=== PATIENT | female | born 1990 | race Caucasian/White ===

== ENCOUNTER 2025-03-07 22:48 | Emergency (ER) | payer OTHER, SELFPAY ==
[2025-03-07 22:50] VITALS: BP 118/80
[2025-03-07 23:41] VITALS: BMI 20.3
[2025-03-07 23:56] LABS: Urine Character Clear (Clear)
[2025-03-08 00:36] LABS: Urine Red Blood Cell 0-2 /HPF (0-2); Urine White Cell 0-2 /HPF (0-5)
--- NOTE | 2025-03-08 00:44 | ED.GENMED ---
History of Present Illness
General
Chief Complaint: Musculo-Skeletal Complaint
Source: patient and records
Exam Limitations: none
Time Seen by Provider: 03/08/25 00:24
Nursing documentation reviewed up to this point in time: agreed with except (Pain is in the right low back, not in the left)
History of Present Illness
History of Present Illness:
34-year-old female presents to the ER for back pain. Patient reports onset of symptoms this evening and they have been constant since that time. She says that she was leaning over the sink when she felt pain in the left low back. She took a dose
of ibuprofen and symptoms have improved but not completely resolved. Pain is in the right low back radiates towards the buttock. Denies significant radicular symptoms. Denies weakness or numbness in the legs. Denies anesthesia in the groin.
Denies any incontinence of bowel or bladder. She has had similar symptoms from myofascial strain in the past. She denies any specific injury but states that she recently had an issue with her left leg and thinks she may have adjusted her gait.
Past History
Past History
ED Past Medical History: Psychiatric (admits she has had anxiety issues in the past and has been on PRN Ativan 3 yrs ago and admits this may be part of the issue and has appt with PCP Maria L Ring NP in 3 days.) and Other (Ulcerative Colitis);
Negative Asthma, HTN, Hypercholesterolemia or NIDDM
ED Past Surgical History: Tonsilectomy
Social History
Tobacco: Non-smoker
Alcohol: Occasional
Personal:
Living: with family
Employment: Employed (Sales)
Review of Systems
Review of Systems
All Other Systems: ROS reviewed and negative except as documented in HPI and ROS
Constitutional: Denies fever
: Denies incontinence
Musculoskeletal: Reports back pain
Neurological: Denies weakness or numbness
Phy Exam
Physical Exam
Physical Exam:
General: Awake, alert, oriented x3; no acute distress
Head: Normocephalic, atraumatic
Eyes: Conjunctiva normal
Throat: Airway intact, handling secretions
Neck: Trachea midline, supple without meningismus
Lungs: Breathing comfortably without distress
Heart: Regular rate
Back: No midline thoracic or lumbar tenderness, tenderness in the paraspinal musculature on the right in the lumbosacral region
Neuro: Cranial nerves grossly intact, speech fluid, motor and sensory intact in the legs, ambulatory with a normal gait
Skin: No rash in the area of concern
Extremities: No edema in extremities, equal pulses in all extremities
Scores
Heart Failure Risk
Heart Failure Risk Score: Not Applicable
Heart Score for Chest Pain Patients
STEMI patient?: Not applicable
Withdrawal Assessment of Alcohol
Withdrawal Assessment Completed?: Not applicable
Course
Orders/Labs/Results
Orders:
Orders
03/07/25 23:46
Urinalysis Reflex To Culture Urgent
Date Specimen was Collected: 03/07/25
Time Specimen was Collected: 23:40
Urine Microscopic Reflex Cult Urgent
03/08/25 00:46
Cyclobenzaprine HCl [Flexeril] 10 mg PO NOW STA
Ketorolac [Toradol] 15 mg IM NOW STA
Abnormal Lab Results
03/07/25
23:46
Urine Albumin (Reflex) 1+ A
(Neg - Trace)
Vital Signs
Initial and Last Documented VS:
Initial Vital Signs
Temp Pulse Resp BP Pulse Ox
36.4 C 104 20 118/80 99
03/07/25 22:50 03/07/25 22:50 03/07/25 22:50 03/07/25 22:50 03/07/25 22:50
Last Documented Vital Signs
Temp Pulse Resp BP Pulse Ox
36.4 C 104 20 118/80 99
03/07/25 22:50 03/07/25 22:50 03/07/25 22:50 03/07/25 22:50 03/08/25 00:46
MDM/Problems Addressed
Differential Diagnosis Includes:
Low back strain, sciatica, UTI less likely
MDM/Problems Addressed:
34-year-old female presents with low back pain. Vitals and exam as above. Symptoms seem consistent with muscular pain. She had a urinalysis in triage which is essentially bland. Plan to treat symptomatically, stable for discharge. No indication
for emergent imaging.
*Pulse Oximetry
SaO2: 99
Oxygen Mode of Delivery: Room air
Patient hypoxic: no (99%)
*Critical Care Note
Total Time (30-74mins, 75-104mins- exclusive of procedures): Not Applicable
Data Reviewed
Source: patient
Further Testing Considered But Not Given:
Considered x-ray of the back
ED Attending Note
-
Portions of this chart may have been created with voice recognition software.� Occasional wrong word or��sound alike� substitutions may have occurred due to the inherent limitations of voice recognition software.
Discharge Plan
Departure
Patient Disposition: Home (Routine Discharge)
Date of Disposition: 03/08/25
Time of Disposition: 00:51
Patient with high blood pressure during this ER visit?: No
Discharge Problem:
Low back pain
Instructions: Back Extension Exercises, Back Flexion Strengthening Exercises
Prescriptions:
New
cyclobenzaprine 10 mg tablet
10 mg PO TIDPRN PRN (Reason: muscle spasm) Qty: 10 0RF
No Action
fluoxetine [Prozac] 40 mg Capsule
40 mg PO DAILY
Trizepitide
1 dose SC WEEKLY
melatonin 10 mg Tablet
10 mg PO HS PRN (Reason: insomnia)
Referrals:
Rosey Gibson DO [Family Provider, Family Practice] - Call in 1-3 days for appt
Activity Restrictions/Additional Instructions:
Thank you for visiting the Emergency Department at [facility].
1. Please schedule a follow up appointment as directed. Call first thing tomorrow morning to make an appointment.
2. If indicated, please take your medications as instructed and indicated on discharge paperwork.
3. If any of your symptoms do not improve, or persist, or become more severe within 6-12 hours, please return to the emergency department for further care.
4. Please return to the emergency department if you develop a headache, neck pain/stiffness, fever greater than 100.4F, chest pain, shortness of breath, persistent nausea, vomiting, slurred speech, difficulty walking, numbness/tingling, weakness,
signs of infection or any other symptoms that are worrisome to you.
Please call [phone] if you have any questions.
Interventions
Interventions:
*Risk Screen - Suicide Last Done: 03/07/25 22:50
*General Assessment Last Done: 03/07/25 22:50
*ED- Fall Risk Assessment Last Done: 03/07/25 22:50
ED-Musculoskeletal Assessment Last Done: 03/07/25 23:41
Discharge Date and Time
Print Language: SYRIAN
[2025-03-08] MEDS: TORADOL 15 MG IM (01:06)
[2025-03-08] MEDS: FLEXERIL 10 MG PO (01:06)
[2025-03-08 01:10] VITALS: BP 99/68
[2025-03-08 01:15] VITALS: BP 99/68
== END 2025-03-08 01:10 | disposition home or self-care (01) ==
LOC: EMR 22:48
PROVIDERS: Emergency Medicine; EMERGENCY PHYSICIAN Emergency Medicine; FAMILY PHYSICIAN Family Medicine
DX: M54.50 Low back pain, unspecified (principal); F41.9 Anxiety disorder, unspecified; K51.90 Ulcerative colitis, unspecified, without complications
CPT/HCPCS: 99284; 96372; 81003; 81015